=== PATIENT | female | born 1990 ===

== ENCOUNTER 2018-01-03 07:52 | Outpatient (CLI) | payer OTHER | END 2018-01-03 07:57 | disposition home or self-care (01) | LOC: SONOGRAMA 07:52 | DX: E04.8 Other specified nontoxic goiter (principal) ==

== ENCOUNTER 2022-03-15 16:37 | Emergency (ER) | payer OTHER ==
[~2022-03-15] VITALS: Ht 152.4 cm; Wt 72.6 kg
== END 2022-03-15 19:55 | disposition home or self-care (01) ==
LOC: ER 16:37
DX: E16.2 Hypoglycemia, unspecified (principal)